=== PATIENT | female | born 1945 | race Caucasian/White ===

== ENCOUNTER 2024-11-10 12:43 | Outpatient (CLI) | payer OTHER ==
[~2024-11-10 12:43] MED LIST: NABUMETONE500 MG PO; PERCOCET 5/3251 TAB PO
== END 2024-11-10 12:56 | disposition home or self-care (01) ==
LOC: MRI 12:43
PROVIDERS: ATTEND Physical Medicine & Rehabilitation
DX: R22.31 Localized swelling, mass and lump, right upper limb (principal); M54.2 Cervicalgia; M54.6 Pain in thoracic spine; M54.50 Low back pain, unspecified; M25.511 Pain in right shoulder
CPT/HCPCS: 73221

== ENCOUNTER 2025-02-15 10:50 | Outpatient (CLI) | payer OTHER | END 2025-02-15 10:53 | disposition home or self-care (01) | LOC: RAD 10:50 | DX: M19.011 Primary osteoarthritis, right shoulder (principal) ==